=== PATIENT | female | born 1985 | race Two or more races ===

== ENCOUNTER 2022-12-15 14:20 | Emergency (ER) | payer MEDICAID, OTHER ==
[~2022-12-15] VITALS: Ht 170.2 cm; Wt 72.7 kg
[2022-12-15 15:09] VITALS: BP 147/92
== END 2022-12-15 15:17 ==
LOC: ER 14:20
DX: F19.959 Other psychoactive substance use, unspecified with psychoactive substance-induced psychotic disorder, unspecified (principal); F14.10 Cocaine abuse, uncomplicated